=== PATIENT | male | born 1995 | race Caucasian/White ===

== ENCOUNTER 2020-01-07 02:51 | Emergency (ER) | payer OTHER, MEDICAID, SELFPAY ==
[2020-01-07 02:56] VITALS: BP 141/97; PULSE 72; RESP 16; TEMP 37.5; O2SAT 99
--- NOTE | 2020-01-07 03:00 | DI.RAD_ITS ---
EXAM: XR PORTABLE CHEST AP CLINICAL HISTORY: cough, wheeze. TECHNIQUE: 2D digital imaging was performed. COMPARISON: No exams were available for comparison FINDINGS: LUNGS: Clear. No pleural abnormality seen. HEART: Normal. MEDIASTINUM: Normal. OTHER FINDINGS: None. IMPRESSION: No acute pulmonary findings. DATA REPOSITORY: RADIATION DOSE DELIVERED: Total DLP
--- NOTE | 2020-01-07 03:11 | ED.GENADUL_ITS ---
Discharge Plan Disposition Patient Disposition: HOME Condition: Improving Discharge Details Clinical Impression: Reactive airway disease ED Provider: Pepe Starr Home Meds and New Rx's Prescriptions: New prednisone 20 mg tablet 40 mg PO DAILY 5 Days Qty: 10 RF: 0 Continued pregabalin [Lyrica] 25 mg Capsule 25 mg PO BID RF: 0 naltrexone 50 mg Tablet 2.5 mg PO DAILY RF: 0 ketamine 100 mg/mL Solution 10 mg PO QID RF: 0 albuterol sulfate [Ventolin HFA] 90 mcg/actuation Hfa Aerosol Inhaler 2 puff INHALATION BID PRNRF: 0 Discharge Instructions Instructions: Reactive Airways Disease (ED) Additional Instructions: Home to rest today. Small, frequent sips of fluids so that you maintain good hydration. Take prednisone as prescribed. Continue your regularly prescribed medications. Your COVID-19 test results are pending and our charge nurse will call you when they are finalized. Return to the ER for any acute concerns. Stand Alone Forms: PENDING COVID-19 TESTING Medical Decision Making 24-year-old male with history of reactive airway disease presents from home with 1 day of cough. He is well-appearing and afebrile. Differential diagnosis includes viral syndrome, exacerbation of reactive airway disease. Patient received inhaled DuoNeb, is referred for chest x-ray. Radiograph without acute findings. Patient with improvement following inhaled treatment. Consistent with mild exacerbation of underlying reactive airway disease. He was swabbed for COVID-19 out of an abundance of caution. I will place him on a small burst of prednisone. He is stable, improved, understands indications to return for reevaluation. HPI General Mode of arrival: ambulatory . Date/Time Provider Initiated Documentation: 01/07/20 03:00 . Limitations to Documentation: no limitations . Information obtained by: patient . History of Present Illness 24 year old M presents to the emergency department with the chief complaint of Cough and shortness of breath, described as mild and moderate, and is localized to the chest. Patient reports no radiation. Patient started experiencing this hour(s) and it has been intermittent. No relieving factors improve symptom(s), No exacerbating factors reported . Patient notes cough; denies fever/chills, loss of appetite and nausea/vomiting. Patient did receive the following treatments prior to arrival, none Related Data Home Medications Medication Instructions Recorded Confirmed albuterol sulfate [Ventolin HFA] 2 puff INHALATION BID PRN 01/07/20 01/07/20 ketamine 10 mg PO QID 01/07/20 01/07/20 naltrexone 2.5 mg PO DAILY 01/07/20 01/07/20 prednisone 40 mg PO DAILY 5 Days #10 tab 01/07/20 pregabalin [Lyrica] 25 mg PO BID 01/07/20 01/07/20 Previous Rx's Medication Instructions Recorded prednisone 40 mg PO DAILY 5 Days #10 tab 01/07/20 Allergies Allergy/AdvReac Type Severity Reaction Status Date / Time No Known Allergies Allergy Unverified 01/07/20 03:02 General Stated Complaint: RespSymp BALA: 4 Review of Systems Narrative: 6 systems reviewed and otherwise negative [facility] Medical History Asthma Denervation of muscle Social History Smoking/Tobacco Use Status: Never Smoking risk assessment performed?: Yes Drug use: Daily Substance use type: marijuana Do you feel safe at home: Yes Do you feel safe in your relationship?: Yes Exam Narrative Exam Narrative: GEN: awake, alert, oriented 3. Pleasant, well groomed, interactive. HEAD: Normocephalic, atraumatic ENT: Mucous membranes moist, oropharynx unremarkable, External ear exam unremarkable EYES: PERRL, EOMI NECK: Full ROM, no DAVID, no menigismus CHEST/RESP: Nontender, clear to auscultation bilateral, faint end expiratory wheeze noted bilaterally CARDIOVASCULAR: RRR, no murmur, rub nasir. 2+ Rad pulse bilateral ABDOMEN: Soft, nontender, no mass. +Bowel sounds EXT: Full ROM, no edema, no rash Neuro: Grossly normal neurologic exam, conversant, interactive. Psych: Speech fluent, thoughts congruent, affect normal Course Vital Signs Vital signs: Vital Signs Temperature 37.5 C 01/07/20 02:56 Pulse 72 01/07/20 02:56 Respiratory Rate 16 01/07/20 02:56 Blood Pressure 141/97 H 01/07/20 02:56 Pulse Oximetry 99 01/07/20 02:56 Temperature 37.5 C 01/07/20 02:56 Pulse 72 01/07/20 02:56 Respiratory Rate 16 01/07/20 02:56 Respiratory Effort Non-Labored 01/07/20 03:07 Blood Pressure 141/97 H 01/07/20 02:56 Pulse Oximetry 99 01/07/20 02:56 Pain Level 5 01/07/20 02:56
--- NOTE | 2020-01-07 03:29 | DI.VRAD_ITS ---
PROCEDURE INFORMATION: Exam: XR Chest, 1 View Exam date and time: 01/07/2020 3:24 AM Age: 24 years old Clinical indication: Cough and wheezing TECHNIQUE: Imaging protocol: XR of the chest Views: 1 view. COMPARISON: No relevant prior studies available. FINDINGS: Lungs: Unremarkable. No consolidation. Pleural space: Unremarkable. No pleural effusion. No pneumothorax. Heart/Mediastinum: Unremarkable. No cardiomegaly. Bones/joints: Unremarkable. IMPRESSION: No acute findings. Dictated and Authenticated by: Eren Pradhan MD. Ordering:YSABEL Cantu MD
[2020-01-07 03:30] VITALS: RESP 4; RESP 6; O2SAT 99
[2020-01-07] MEDS: Albuterol/Ipratropium 3 ML UPD VIAL UPD (03:30)
[2020-01-07] MEDS: predniSONE 20 MG TAB 40 MG PO (03:50)
[2020-01-09 22:28] LABS: Patient Race White; SARS-CoV-2 RNA Undetected (Undetected); SARS-CoV-2 Specimen Source Nasal
--- NOTE | 2020-01-11 08:49 | NUR.NOTE ---
unable to reach patient by listed phone numbers. Mailed negative covid test results to patient's home address.
== END 2020-01-07 03:46 | disposition home or self-care (01) ==
PROVIDERS: Emergency Provider Emergency Medicine; PCP Family Medicine
DX: R06.02 Shortness of breath (principal); J45.901 Unspecified asthma with (acute) exacerbation; Z03.818 Encounter for observation for suspected exposure to other biological agents ruled out
CPT/HCPCS: 94640; 99283; U0003; 71045; 99284; J7512; J7620